=== PATIENT | male | born 1955 | race Two or more races ===

== ENCOUNTER 2023-05-09 20:10 | Emergency (ER) | payer OTHER ==
[~2023-05-09] VITALS: Ht 162.6 cm; Wt 98.8 kg
[2023-05-09 20:23] VITALS: BP 137/92; PULSE 111; RESP 20; TEMP 98.6; O2SAT 96
[2023-05-09] MEDS ORDERED: CEPHALEXIN 250 MG CAP PO ONE (22:00)
[2023-05-09] MEDS ORDERED: LIDOCAINE 1% HCL (LOCAL ANESTH.) INJ 20ML MDV ID ONE (22:00)
[2023-05-09] MEDS ORDERED: TETANUS-DIPTH-ACEL PERTUSSIS 0.5ML SYR Tdap IM ONE (22:00)
[2023-05-09] MEDS ORDERED: HYDROcodone-ACET 5/325MG TAB PO ONE (22:00)
[2023-05-09] MEDS ORDERED: MUPI2OIN2 EX ×3 (22:17→22:45)
[2023-05-09] MEDS ORDERED: CEPH500C PO ×3 (22:17→22:45)
[2023-05-09] MEDS ORDERED: IBUP-1453 PO ×3 (22:17→22:45)
== END 2023-05-09 22:46 | disposition home or self-care (01) ==
LOC: ER 20:10
DX: S62.633B Displaced fracture of distal phalanx of left middle finger, initial encounter for open fracture (principal); M79.5 Residual foreign body in soft tissue; Z79.1 Long term (current) use of non-steroidal anti-inflammatories (NSAID); Z79.899 Other long term (current) drug therapy; W26.8XXA Contact with other sharp object(s), not elsewhere classified, initial encounter; Y93.89 Activity, other specified; Y92.89 Other specified places as the place of occurrence of the external cause; Y99.8 Other external cause status
CPT/HCPCS: 12002; 73130; 90471; 90715